=== PATIENT | female | born 1980 | race Caucasian/White ===

== ENCOUNTER 2018-06-18 09:01 | Day surgery (SDC) | payer BC ==
[2018-06-18] VITALS (9 sets, daily range): BP systolic 98–110; BP diastolic 59–69
[~2018-06-18] VITALS: Ht 170.2 cm; Wt 68.0 kg
[~2018-06-18 09:01] MED LIST: BUPROPION XL300 MG ORAL; CREON DR 12,001 EACH PO; ZYRTEC10 MG ORAL; ceFAZolin sod 1 GM in NS 55 ML IVPB ONE
[2018-06-18] MEDS ORDERED: fentaNYL 100 mcg/2 mL IV ONE (10:04)
[2018-06-18] MEDS ORDERED: Midazolam 2mg/2ml Inj ONE (10:05)
[2018-06-18] MEDS ORDERED: Ketorolac 30mg Inj ONE (10:05)
[2018-06-18] MEDS ORDERED: Propofol 200mg/20ml IV ONE (10:05)
[2018-06-18] MEDS ORDERED: Lidocaine 1% MPF 10mg/ml 5ml ONE (10:05)
[2018-06-18 10:08] LABS: BASOPHILS % (AUTO) 1.3 % (0.0-2.0); EOSINOPHILS % (AUTO) 3.7 % (0.0-3.0); LYMPHOCYTES % (AUTO) 30.1 % (20.0-45.0); MEAN CORPUSCULAR VOLUME 94 FL (80-99); MONOCYTES % (AUTO) 8.5 % (1.0-10.0); NEUTROPHILS % (AUTO) 56.5 % (45.0-75.0); PLATELET COUNT 230 K/UL (150-450); RED BLOOD COUNT 4.17 M/UL (4.20-5.40); RED CELL DISTRIBUTION WIDTH 11.6 % (11.6-14.8); WHITE BLOOD COUNT 5.5 K/UL (4.8-10.8)
[2018-06-18 10:56] LABS: ANION GAP 11 mmol/L (5-15); BLOOD UREA NITROGEN 11 mg/dL (7-18); CALCIUM 8.8 MG/DL (8.5-10.1); CARBON DIOXIDE 22 MMOL/L (21-32); CHLORIDE 107 MMOL/L (98-107); CREATININE 0.7 MG/DL (0.55-1.30); SODIUM 140 MMOL/L (136-145)
[2018-06-18] MEDS ORDERED: Dexamethasone 4mg/ml vial ONE (10:57)
[2018-06-18] MEDS ORDERED: Bacitracin 50000 Units Vial ONE (10:58)
[2018-06-18] MEDS ORDERED: Betadine 10% Oint 30gm TOPIC ONE (10:58)
[2018-06-18] MEDS ORDERED: Lidocaine 1% Plain 30 ml INJ ONE (10:58)
--- NOTE | 2018-06-18 11:00 | Pre-Procedure Note/Attestation ---
Pre-Procedure Note/Attestation Complete Prior to Procedure Planned Procedure: right Procedure Narrative: hallux limitus with bone spur right 1st MPJ Indications for Procedure Pre-Operative Diagnosis: correction of hallux limitus with cheilectomy and reduction of bone spur right foot Attestation I attest that I discussed the nature of the procedure; its benefits; risks and complications; and alternatives (and the risks and benefits of such alternatives ), prior to the procedure, with the patient (or the patient's legal admitting representative). I attest that, if there was a reasonable possibility of needing a blood transfusion, the patient (or the patient's legal admitting representative) was given the [place] [employer] standardized written summary, pursuant to the Janes Bo Blood Safety Act ([place] Health and Safety Code # 1645, as amended). I attest that I re-evaluated the patient just prior to the surgery and that there has been no change in the patient's H&P, except as documented below: Luis Miguel Daugherty DPM Jun 18, 2018 11:00
[2018-06-18] MEDS: Bupivacaine 0.25% Inj 30ml INJ ONE ×2 (11:30→12:00)
[2018-06-18] MEDS ORDERED: LR 1000ml 1,000 ML IVLG SCH (11:43)
--- NOTE | 2018-06-18 11:43 | Anethesia Preoperative Eval ---
Anesthesia Pre-op PMH/ROS General Date of Evaluation: Jun 18, 2018 Time of Evaluation: 11:08 Anesthesiologist: Brady ASA Score: ASA 2 Mallampati Score Class I : Soft palate, uvula, fauces, pillars visible Class II: Soft palate, uvula, fauces visible Class III: Soft palate, base of uvula visible Class IV: Only hard plate visible Mallampati Classification: Class II Surgeon: Dat Diagnosis: R foot bunion Surgical Procedure: R foot bunionectomy Anesthesia History: none Family History: no anesthesia problems Allergies: Coded Allergies: No Known Allergies (Unverified , 06/17/18) Medications: see eMAR Patient NPO?: Yes Past Medical History Cardiovascular: Denies: HTN, CAD, IA, valve dz, arrhythmia, other Pulmonary: Denies: asthma, COPD, MELY, other Gastrointestinal/Genitourinary: Reports: GERD; Denies: CRI, ESRD, other Neurologic/Psychiatric: Reports: depression/anxiety; Denies: dementia, CVA, TIA, other Endocrine: Denies: DM, hypothyroidism, steroids, other HEENT: Denies: cataract (L), cataract (R), glaucoma, [place] (L), [place] (R), other Hematology/Immune: Denies: anemia, DVT, bleeding disorder, other Musculoskeletal/Integumentary: Denies: OA, RA, DJD, DDD, edema, other PMH Narrative: as above PSxH Narrative: Sinus Sx Anesthesia Pre-op Phys. Exam Physician Exam Last Vital Signs Date Time Temp Pulse Resp B/P (MAP) Pulse Ox O2 Delivery O2 Flow Rate FiO2 06/18/18 10:01 Room Air 06/18/18 09:53 98.2 65 18 104/69 100 Constitutional: NAD Neurologic: CN 2-12 intact Cardiovascular: RRR, no M/R/G Respiratory: CTA Gastrointestinal: S/NT/ND Airway Exam Mallampati Score: Class II MO: full Neck: flexible ROM: full Teeth: intact Dentures: no upper, no lower Anesthesia Pre-op A/P Labs Hematology Test 06/18/18 09:55 White Blood Count 5.5 K/UL (4.8-10.8) Red Blood Count 4.17 M/UL (4.20-5.40) L Hemoglobin 13.0 G/DL (12.0-16.0) Hematocrit 39.0 % (37.0-47.0) Mean Corpuscular Volume 94 FL (80-99) Mean Corpuscular Hemoglobin 31.2 PG (27.0-31.0) H Mean Corpuscular Hemoglobin Concent 33.3 G/DL (32.0-36.0) Red Cell Distribution Width 11.6 % (11.6-14.8) Platelet Count 230 K/UL (150-450) Mean Platelet Volume 6.0 FL (6.5-10.1) L Neutrophils (%) (Auto) 56.5 % (45.0-75.0) Lymphocytes (%) (Auto) 30.1 % (20.0-45.0) Monocytes (%) (Auto) 8.5 % (1.0-10.0) Eosinophils (%) (Auto) 3.7 % (0.0-3.0) H Basophils (%) (Auto) 1.3 % (0.0-2.0) Coagulation Test 06/18/18 09:55 Prothrombin Time 10.4 SEC (9.30-11.50) Prothromb Time International Ratio 1.0 (0.9-1.1) Activated Partial Thromboplast Time 29 SEC (23-33) Chemistry Test 06/18/18 09:55 Sodium Level 140 MMOL/L (136-145) Potassium Level 4.0 MMOL/L (3.5-5.1) Chloride Level 107 MMOL/L (98-107) Carbon Dioxide Level 22 MMOL/L (21-32) Anion Gap 11 mmol/L (5-15) Blood Urea Nitrogen 11 mg/dL (7-18) Creatinine 0.7 MG/DL (0.55-1.30) Estimat Glomerular Filtration Rate > 60 mL/min (>60) Glucose Level 85 MG/DL (74-106) Calcium Level 8.8 MG/DL (8.5-10.1) Urine Test Test 06/18/18 09:15 Urine HCG, Qualitative Negative (NEGATIVE) Studies Pre-op Studies: EKG - NSR Risk Assessment & Plan Assessment: ASA 2 Plan: MAC with ankle block Status Change Before Surgery: No Pre-Antibiotics Drug: Ancef 1gr Given Within 1 Hr of Incision: Yes Time Given: 11:22 Buck Abreu MD Jun 18, 2018 11:43
--- NOTE | 2018-06-18 11:43 | Diagnostic Imaging Report ---
Indication: Foot Pain Comparison: None Findings: 3 views of the right foot were obtained. No acute fractures, malalignment, erosions or periostitis are identified. Os naviculare noted. Soft tissues are unremarkable. Impression: No acute findings.
[2018-06-18] MEDS ORDERED: DiphenhydrAMINE 50mg/ml Inj IVP PRN (11:45)
[2018-06-18] MEDS ORDERED: Meperidine 50mg/ml Inj(FOR RIGORS ONLY) IV PRN (11:45)
[2018-06-18] MEDS ORDERED: Ketorolac 30mg Inj IV PRN (11:45)
[2018-06-18] MEDS ORDERED: LR 1000ml ONE (12:00)
[2018-06-18] MEDS ORDERED: Sterile Water Irrig 1000ml IRRIG ONE (12:00)
[2018-06-18] MEDS ORDERED: NS Irrig 1000ml ONE (12:00)
--- NOTE | 2018-06-18 12:42 | Brief Operative Note ---
Immediate Post Operative Note Operative Note Pre-op Diagnosis: hallux limitus with bone spur right foot Procedure: 1st mpj right cheilectomy with reduction of bone spur Post-op Diagnosis: same as pre op Post-op Diagnosis: same as pre-op Surgeon: luis miguel daugherty Anesthesiologist: juaquin Anesthesia: MAC Specimen: yes Complications: none Condition: stable Fluids: 0 Estimated Blood Loss: none Drains: none Tourniquet time: 56 Implant(s) used?: No Luis Miguel Daugherty DPM Jun 18, 2018 12:42
--- NOTE | 2018-06-18 13:42 | Diagnostic Imaging Report ---
Indication: Foot Pain Comparison: None Findings: 3 views of the right foot were obtained. No acute fractures, malalignment, erosions or periostitis are identified. Soft tissues are unremarkable. Soft tissue swelling in the medial part of the foot noted. No radiopaque foreign body identified. Impression: No acute findings. Soft tissue swelling
--- NOTE | 2018-06-18 22:15 | Pre-op HX & Phy Repo 2 SIG ---
DATE OF ADMISSION: 06/18/2018 HISTORY OF PRESENT ILLNESS: The patient is a 37-year-old female who presents to the office with a painful right first MPJ for the past few years, but the pain is progressively getting worse in the past few months. The pain was mostly in the first MPJ of the right. The patient has tried numerous conservative treatment including padding, offloading, shoe gear changes, and trigger point injection but the pain has not . She reports no recent illnesses. No recurrent nausea, vomiting, chills, or shortness of breath. The patient is scheduled to have surgery today at [facility]. PAST MEDICAL HISTORY: Mood disorder. PAST SURGICAL HISTORY: Not pertinent. ALLERGIES: No known drug allergies. FAMILY HISTORY: No pertinent findings. PHYSICAL EXAMINATION: VITAL SIGNS: Temperature 99.0 degrees, pulse 68, respiratory rate is 16, blood pressure is 120/80. DERMATOLOGICAL: No open lesion or hyperkeratotic tissue noticed. VASCULAR: Dorsalis pedis and posterior artery are palpable. No edema. NEUROLOGICAL: The patient responds to touch, vibration and temperature changes on the skin. MUSCULOSKELETAL: Full muscle strength was noticed. Pain on palpation of the first MPJ on the dorsolateral aspect. Bony prominence is noticed on the dorsolateral. ASSESSMENT: This is a 37-year-old female with a right foot pain secondary to hallux degenerative joint disease and limitation. The patient has tried conservative measures, however, she is dealing with daily pain. Recommended surgery as a next extensive management. The risks, benefits, and alternatives were discussed with the patient in detail who understands and wants to proceed with surgical intervention. All patient questions have been addressed and answered. The patient is scheduled to have surgery today on 06/18/2018 at [facility]. Luis Miguel Daugherty D.P.M. DR: Rubina JOB#: [id number] CC:
--- NOTE | 2018-06-19 03:45 | Pre-op HX & Phy Repo 2 SIG ---
DATE OF ADMISSION: 06/18/2018 PRESURGICAL INTERNAL MEDICINE HISTORY AND PHYSICAL REASON FOR EVALUATION: I was asked by Dr. Luis Miugel Daugherty, to see this 37-year-old female, who is going for elective surgery on the right foot. The patient has hallux first MPJ. Please see Podiatry History and Physical by Dr. Daugherty. The patient was evaluated outpatient procedure at [facility]. PAST MEDICAL HISTORY/REVIEW OF SYSTEMS: Remarkable for denies history of hypertension. No history of chest pain, palpitation, or heart attack. Denies history of diabetes. The patient has a history of bronchiectasis and childhood bronchial asthma. The patient has also chronic pancreatitis. Denies history of thyroid problem or anemia. No history of renal failure. No hepatitis. Denies history of ulcer disease. No bleeding. SURGICAL HISTORY: Upper GI endoscopy and right sinusitis. FAMILY HISTORY: Father had a hydrocephalus and surgery. Mother alive and well. ALLERGIES: To mice, dust, and pollen. PRESENT MEDICATION: Include Aleve and inhalers. HABITS: The patient smoked for the last 16 years pack a day. Denies alcohol or street drug use. PHYSICAL EXAMINATION: GENERAL: Alert, well-developed, well-nourished female, in her 30s. VITAL SIGNS: Blood pressure 104/69, temperature 98.2, pulse 65 per minute, and O2 saturation 100% on room air. SKIN: Warm, clear, dry. No rashes. No open wounds or ulcers. HEAD: Normocephalic. Ears, clear. Eyes, full. PERRLA. Extraocular muscles intact. . Ears, clear. No discharge. NECK: Supple. No jugular venous distention. Carotids artery +2. Trachea midline. CHEST: No deformity or asymmetry. LUNGS: Clear. No rales or rhonchi. HEART: Sinus rhythm. No ectopy. No murmurs. No S3 or S4. ABDOMEN: Soft, benign. Liver and spleen not enlarged. No rebound. EXTREMITIES: Right foot deformity, full description per Dr. Daugherty. No edema or calf tenderness. appreciated. GENITOURINARY: No dysuria. No CVA tenderness. DIAGNOSTIC DATA: ECG, sinus rhythm, 69, P-wave inverted. The patient did not eat or drink from 8:30 p.m. yesterday. Laboratory work pending. IMPRESSION: 1. Hallux right first MPJ spur. 2. Chronic pancreatitis. 3. Bronchiectasis. PLAN: 1. Colectomy. 2. Right first MPJ per Dr. Daugherty. CONCLUSION: The patient is a 37-year-old female, who is going for surgery on the right foot. The patient's vital signs are stable. ECG, P-wave abnormality. The patient did not eat or drink from 8:30 p.m. yesterday. The patient's condition optimized for surgery. Thank you very much, Dr. Daugherty, for privilege to participate in the presurgical care of this interesting patient. Amalia Brock M.D. DR: NATE JOB#: [id number] CC:
--- NOTE | 2018-06-19 03:45 | Operative Note - Dictated ---
DATE OF OPERATION: 06/18/2018 NOTE: POOR AUDIO SURGEON: Luis Miguel Daugherty D.P.M. ANESTHESIOLOGIST: . PREOPERATIVE DIAGNOSIS: Right hallux limitus with osteophyte and bone spur formation. POSTOPERATIVE DIAGNOSIS: Right MPJ degenerative changes and hallux limitus and cartilage defect with bone spur formation on the dorsal lateral aspect of the first metatarsal right. HEMOSTASIS: Pneumatic ankle tourniquet at 250 mmHg. TITLE OF OPERATION: Correction of hallux limitus with reduction of bone spur and osteophyte, right first MPJ. ESTIMATED BLOOD LOSS: Negligible. MATERIALS USED: 2-0 Vicryl, 3-0 Vicryl, 4-0 Vicryl, and the skin was closed using for 4-0 nylon. INJECTABLE: 20 mL of 0.25% Marcaine and 1% lidocaine in the ratio of 1:1 was injected into the right foot in Griffin block fashion in the first MPJ. Intraoperatively, 8 mL of Marcaine 0.25 in combination with 2 mL of dexamethasone was injected in the area for management of edema reduction. PATHOLOGY: Bone resected from the osteophyte and then medial dorsal was sent for pathology and further study. DRESSING: Incision was covered using Xeroform, Betadine ointment, 4 x 4, Ayala, and Coban. COMPLICATIONS: None. CONDITION: Stable. DESCRIPTION OF PROCEDURE IN DETAIL: The patient was brought into the operating room and assisted onto the operating table in supine position. She was well padded to avoid any excessive pressure. The patient was then given 1 g of Ancef before the start of surgery and a time-out was performed. A well-padded pneumatic ankle tourniquet was then placed about the patient's right ankle. Local anesthesia block was administered at this time that included 20 mL of 1:1 mixture of 0.25% Marcaine and 1% lidocaine in equal portion. The foot was then scrubbed and prepared and draped in the usual aseptic manner. Attention was directed to the right foot, precisely the first MPJ joint. A preplanned incision was done on the dorsal aspect of the first MPJ crossing the MPJ joint approximately 8 cm in length. The incision was made medial to the extensor hallucis longus tendon. The incision was deepened through subcutaneous tissue. All vital structures were retracted and bleeders were cauterized. At this time, the capsule was exposed. A linear capsulotomy was performed to expose the head of the metatarsal joint. The head of the metatarsal joints on its dorsal lateral aspect was noticed to have multiple osteophyte and bone spur formation that are sharp. It was also noticed that the articular cartilage on the plantar lateral was . Approximately 8 mm cartilage defect was noticed in that area. At this time, using a sagittal saw, the osteophyte and bone spur formation of the head of the first metatarsal were removed and passed off from the field. At this time, the lateral head of the first metatarsal was also noticed to have osteophyte formation. It was smoothed out using a rasp. The rasp was further utilized to smooth out all the surfaces on the medial, dorsal, and lateral side of the metatarsal. At this time, the defect was addressed using fenestration technique by making multiply holes using a K-wire as to bring the bone mineral for fibrosis purposes. The joint was then put through the range of motion. No or crepitus was noted. At this time using normal saline, the area was lavaged and subsequently the capsule was closed using 2-0 Vicryl. Deep tissue was closed using 3-0 Vicryl. Subcutaneous tissue was closed using 4-0 Vicryl and skin was closed using 4-0 nylon. After the closure, the metatarsophalangeal joint was put through range of motion again and good range of motion was . No crepitation or was noticed. At this time, an injection of 8 mL of 0.25% Marcaine and 2 mL of dex was given in the area for postoperative pain management and reduction of edema. The incision was dressed using Xeroform, 4 x 4, Ayala, and Coban. After incision was dressed, the ankle tourniquet was then deflated and immediate hyperemia was noted to digits 1 through 5. At this time, the patient was transferred from the operating room to recovery room with all vital signs stable. She will be given crutches and postoperative shoes. She was given instructions before the surgery and after the surgery with followup appointment and instructions how to bathe, shower and walk on the right foot. There were no complications to the surgery. The patient was discharged home once cleared by anesthesiologist. Luis Miguel Daugherty D.P.M. DR: HEIDI JOB#: [id number] CC:
== END 2018-06-18 14:00 | disposition home or self-care (01) ==
LOC: SUR 09:01
DX: M20.5X1 Other deformities of toe(s) (acquired), right foot (principal); M77.9 Enthesopathy, unspecified; K86.1 Other chronic pancreatitis; J47.9 Bronchiectasis, uncomplicated; F17.210 Nicotine dependence, cigarettes, uncomplicated; K21.9 Gastro-esophageal reflux disease without esophagitis
CPT/HCPCS: 28289; 36415; 73630; 80048; 81025; 85025; 85610; 85730; J0690; J1100; J1885; J2001; J2250; J2704; J3010; J3490; 94003; 94150